=== PATIENT | female | born 1995 | race Caucasian/White ===

== ENCOUNTER → 2017-03-25 | Outpatient (CLI) | payer BC ==
[~2017-03-25] MED LIST: BIRTH CONTROL; CATHETER FLUSH 10 ML SYR IV PRN; HYOS0.379 PO; IOHEXOL 350 MG/ML 100 ML (OMNIPAQUE 350) VIAL IV ONE; NS 100 ML (IVPB) BAG IV ONE
--- NOTE | 2017-03-25 12:06 | Diagnostic Imaging Report ---
PROCEDURE: CT abdomen with contrast only. TECHNIQUE: Multiple contiguous axial images were obtained through the abdomen after the administration of intravenous contrast. INDICATION: Abdominal pain. 100 mL of Omnipaque 350 is administered intravenously. FINDINGS: The lung bases appear clear. The liver, the gallbladder, the spleen, the pancreas and the adrenal glands appear unremarkable. The kidneys demonstrate symmetric enhancement. No hydronephrosis. The abdominal aorta is normal in caliber. No paraaortic significantly enlarged lymph node is seen. The appendix is partially visualized in the lower abdomen with no abnormality seen. No fluid collection or pneumoperitoneum. Scoliosis convex to the right side is seen in the lumbar spine with no focal osseous lesion seen. IMPRESSION: Right convexity scoliosis. No acute process. Dictated by: Dictated on workstation # [id number]
== END ==
LOC: RAD 11:14
PROVIDERS: ATTEND Nurse Practitioner Family
DX: M41.26 Other idiopathic scoliosis, lumbar region (principal)
CPT/HCPCS: 74160

== ENCOUNTER 2017-04-14 05:35 | Outpatient (CLI) | payer BC ==
[~2017-04-14] VITALS: Ht 165.1 cm; Wt 68.0 kg
[~2017-04-14 05:35] MED LIST changes: -CATHETER FLUSH 10 ML SYR IV PRN; -IOHEXOL 350 MG/ML 100 ML (OMNIPAQUE 350) VIAL IV ONE; -NS 100 ML (IVPB) BAG IV ONE
[2017-04-14] MEDS ORDERED: HYOS0.1281 PO (09:39)
[2017-04-14] MEDS ORDERED: NORG1TAB14 PO (09:39)
== END 2017-04-14 09:42 ==
LOC: PREOP 05:35
PROVIDERS: ATTEND Surgery
DX: Z01.818 Encounter for other preprocedural examination (principal); K21.9 Gastro-esophageal reflux disease without esophagitis

== ENCOUNTER 2017-04-19 09:27 | Day surgery (SDC) | payer BC ==
[~2017-04-19] VITALS: Ht 165.1 cm; Wt 68.0 kg
[~2017-04-19 09:27] MED LIST changes: +HYOS0.1281 PO; +NORG1TAB14 PO
--- OUTSIDE RECORDS SUMMARY | 2017-04-19 09:32 | XMS REPORT ---
Author Author GRETTA CABA Organization [facility] Address [address] [place] [address] Care Team Providers Care Community Placement Worker Name Role Phone GRETTA CABA Unavailable PROBLEMS Unknown Problems ALLERGIES No Known Allergies SOCIAL HISTORY Never Assessed PLAN OF CARE Activity Details Follow Up prn Reason: VITAL SIGNS Height 65 in 2016-05-22 Weight 123.8 lbs 2016-05-22 Temperature 98.8 degrees Fahrenheit 2016-05-22 Heart Rate 80 bpm 2016-05-22 Respiratory Rate 18 2016-05-22 BMI 20.60 kg/m2 2016-05-22 Blood pressure systolic 114 mmHg 2016-05-22 Blood pressure diastolic 70 mmHg 2016-05-22 MEDICATIONS Medication Instructions Dosage Frequency Start Date End Date Duration Status Sprintec 28 0.25-35 MG-MCG Orally Once a day 1 tablet 24h Active RESULTS Name Result Date Reference Range STREP A (IN HOUSE) 2016-05-22 STREP A negative Control + Lot # [id number] Exp date [id number] PROCEDURES Procedure Date Ordered Result Body Site STREP A ASSAY W/OPTIC May 22, 2016 IMMUNIZATIONS No Known Immunizations
[2017-04-19 09:45] VITALS: BP 118/82
[2017-04-19] MEDS ORDERED: NS IV 500 ML 500 ML IV PRN (10:06)
[2017-04-19] MEDS ORDERED: HURRICAINE EXT TUBE (BENZOCAINE) XX PRN (10:15)
--- NOTE | 2017-04-19 10:55 | History & Physicial ---
History of Present Illness History of Present Illness Reason for visit/HPI to undergo an upper endoscopy regarding epigastric and left upper quadrant pain. Date of Admission 04/19/17 Date Seen by Provider: Apr 19, 2017 Time Seen by Provider: 10:53 I consulted on this patient on 04/19/17 10:53 Attending Physician Azael Wetzel MD Admitting Physician Meghan Amador DO Consult Allergies and Home Medications Allergies Coded Allergies: No Known Drug Allergies (Unverified , 04/14/17) Home Medications Hyoscyamine Sulfate 0.125 Mg Tablet, 0.125 MG PO PRN, (Reported) Norgestimate-Ethinyl Estradiol 1 Each Tablet, 1 EACH PO DAILY, (Reported) Past Tizqxhe-Vcsiaa-Yqnagt Hx Patient Social History Marrital Status: single Employed/Student: employed Alcohol Use: Occasionally Uses Recreational Drug Use: No Smoking Status: Former Smoker Former Smoker, Quit: Nov 16, 2016 Type Used: Cigarettes Recent Foreign Travel: No Contact w/other who traveled: No Recent Hopitalizations: No Recent Infectious Disease Expo: No Immunizations Up To Date Date of Influenza Vaccine: Apr 27, 2016 Seasonal Allergies Seasonal Allergies: No Surgeries No Respiratory No Cardiovascular No Neurological No Reproductive System Hx Reproductive Disorders: No Sexually Transmitted Disease: No HIV/AIDS: No Female Reproductive Disorders: Denies Gastrointestinal No Musculoskeletal Yes Scoliosis, Chronic Back Pain Endocrine History of Endocrine Disorders: No HEENT History of HEENT Disorders: No Loss of Vision: Bilateral Hearing Impairment: Denies Cancer No Blood Transfusions Adverse Reaction to a Blood Tr: No (N/A) Constitutional: no symptoms reported EENTM: no symptoms reported Respiratory: no symptoms reported Cardiovascular: no symptoms reported Gastrointestinal: see HPI Genitourinary: no symptoms reported Musculoskeletal: no symptoms reported Skin: no symptoms reported Psychiatric/Neurological: No Symptoms Reported Physical Exam Vital Signs Vital Sign - Last 12Hours 04/19/17 09:45 Temp 99.0 Pulse 68 Resp 20 B/P (MAP) 118/82 (94) Pulse Ox 100 O2 Delivery Room Air Capillary Refill : General Appearance: No Apparent Distress HEENT: Normal ENT Inspection Neck: Normal Inspection Respiratory: Lungs Clear Cardiovascular: Regular Rate, Rhythm Gastrointestinal: Non Tender, Soft Neurologic/Psychiatric: Alert, Oriented x3 Skin: Warm/Dry Assessment/Plan Assessment and Plan lady with epigastric and left upper quadrant abdominal pain. Esophagitis, peptic ulcers and H. pylori infection discussed. Upper endoscopy reasonable first. If negative,, an ultrasound evaluation of the gallbladder would be arranged as an outpatient Problems: AZAEL WETZEL MD Apr 19, 2017 10:55 am
--- NOTE | 2017-04-19 10:55 | Conscious Sedation/ASA ---
Conscious Sedation Pre-Proced Time Reviewed: 10:55 ASA Class: 2 Airway Mallampati Classification: (mentasta appropriate class) I. II. III, IV Lungs Heart ASA score ASA 1: a normal healthy patient ASA 2: a patient with a mild systemic disease (mid diabetes, controlled hypertension, obesity ASA 3: a patient with a severe systemic disease that limits activity (angina , COPD, prior Myocardial infarction) ASA 4: a patient with an incapacitating disease that is a constant threat to life (CHF, renal failure) ASA 5: a moribund patient not expected to survive 24 hrs. (ruptured aneurysm) ASA 6: a declared brain patient whose organs are being harvested. For emergent operations, add the letter E after the classification Grade 1 Sedation Plan: Discussed options with patient/fam Note The patient is an appropriate candidate to undergo the planned procedure, sedation, and anesthesia. The patient immediately re-assessed prior to indication. AZAEL KAPADIA MD Apr 19, 2017 10:55 am
[2017-04-19] MEDS ORDERED: MIDAZOLAM 2 MG/2 ML (VERSED) VIAL ONE ×4 (10:56→10:57)
[2017-04-19] MEDS ORDERED: fentaNYL INJECTION 100 MCG/2 ML AMP ONE (10:57)
[2017-04-19] MEDS ORDERED: HURRICAINE EXT TUBE (BENZOCAINE) ONE (10:57)
[2017-04-19] MEDS: fentaNYL INJECTION 100 MCG/2 ML AMP IVP PRN ×2 (11:03→11:10)
[2017-04-19] MEDS: MIDAZOLAM 2 MG/2 ML (VERSED) VIAL IVP PRN ×4 (11:04→11:16)
--- NOTE | 2017-04-19 11:29 | Endo Procedure Record ---
Endo Procedure Report Date of Procedure Apr 19, 2017 Surgeon (s) AZAEL KAPADIA MD Post Procedure/Op Diagnosis 1. Grade 2 esophagitis 2. Small distal gastric erosion 3. Very few duodenal erosions Procedure Performed EGD with antral biopsy for H. pylori Description of Procedure Anesthesia Type: Conscious Sedation Specimen(s) collected/removed antral mucosa for H. pylori Description of the Procedure Indication for procedure: This lady came in for an upper endoscopy to evaluate ongoing epigastric and left upper quadrant abdominal pain. Informed consent was obtained after reviewing the procedure in detail. Description of the procedure: She was placed in left lateral rectus position and her vital signs were monitored. Conscious sedation was achieved using Versed and fentanyl. The flexible gastroscope was then introduced down the esophagus, past the stomach, into the proximal duodenum. Findings Esophagus: Grade 2 esophagitis with a short hiatal hernia. Stomach: A very small and shallow erosion at the distal stomach. Biopsy for H. pylori was obtained. Duodenum: Very few, shallow erosions were found along the first part. There was no sukhdeep ulceration. She tolerated the procedure well and was taken back to the nursing area in a stable condition. Impression: Epigastric and left upper quadrant pain. Esophagitis and gastric/ duodenal erosions. H. pylori pending. Copies To: LAMAR GARRIDO XAVIER M MD Apr 19, 2017 11:29 am
--- NOTE | 2017-04-19 11:31 | Discharge Inst-Simple/Standard ---
Discharge Inst-Standard Discharge Medications New, Converted or Re-Newed RX: Other Patient Instructions/Follow Up Plan of Care/Instructions/FU: Please call for Protonix 40 mg daily for 30 days with 5 refills to her pharmacy. Schedule a gallbladder ultrasound as an outpatient. Activity as Tolerated: Yes Discharge Diet: No Restrictions AZAEL KAPADIA MD Apr 19, 2017 11:31 am
[2017-04-19 11:45] VITALS: BP 114/69
[2017-04-19 12:15] VITALS: BP 103/68
[2017-04-19 12:26] VITALS: BP 103/68
== END 2017-04-19 13:10 | disposition home or self-care (01) ==
LOC: ENDO 09:27
PROVIDERS: ATTEND Surgery
DX: K21.0 Gastro-esophageal reflux disease with esophagitis (principal); K25.9 Gastric ulcer, unspecified as acute or chronic, without hemorrhage or perforation; K26.9 Duodenal ulcer, unspecified as acute or chronic, without hemorrhage or perforation; Z87.891 Personal history of nicotine dependence
CPT/HCPCS: 84703

== ENCOUNTER → 2017-04-21 | Outpatient (CLI) | payer BC ==
--- NOTE | 2017-04-21 10:27 | Diagnostic Imaging Report ---
PROCEDURE: US Gallbladder. TECHNIQUE: Multiple real-time grayscale images were obtained over the right upper quadrant in various projections. INDICATION: Right upper quadrant pain. There are no previous ultrasound examinations available for comparison. The CT abdomen exam of 03/15/2017 failed to show any sign of an acute abnormality of the right upper quadrant. On this study, there is no evidence for cholelithiasis or acute cholecystitis. The common bile duct was obscured by bowel gas. The liver does not appear to be enlarged and there is no focal mass involving the liver. The biliary is not abnormally dilated. The right kidney and pancreas are within normal limits. There is no mass or free fluid collection noted. IMPRESSION: 1. There is no acute abnormality of the right upper quadrant, although the common bile duct was not well visualized. 2. If clinical concern regarding an acute abnormality of the gallbladder persists, then nuclear medicine hepatobiliary scan would be recommended for further study. Dictated by: Dictated on workstation # [id number]
== END ==
LOC: RAD 06:35
PROVIDERS: ATTEND Surgery
DX: R10.11 Right upper quadrant pain (principal)
CPT/HCPCS: 76705

== ENCOUNTER → 2017-04-23 | Outpatient (CLI) | payer BC ==
[~2017-04-23] MED LIST changes: +CATHETER FLUSH 10 ML SYR IV PRN
--- NOTE | 2017-04-23 14:32 | Diagnostic Imaging Report ---
INDICATION: Right upper quadrant pain. TECHNIQUE: Patient received 5 mCi technetium-99m Choletec and sequential imaging of the abdomen performed. At the 60-minute interval, the gallbladder stimulation was via Ensure by mouth. FINDINGS: There is prompt homogeneous distribution of radiopharmacy throughout the liver parenchyma. Within 15 minutes time, activity was seen to be accumulating within the gallbladder as well as the extrahepatic bile ducts. By 20 minutes time, activity had spilled into proximal bowel. With gallbladder stimulation via Ensure, there is only mild gallbladder contractility. The ejection fraction was 26%. IMPRESSION: Relatively low gallbladder ejection fraction of 26%, 30% typically the lower limits of normal. The study was otherwise unremarkable. Dictated by: Dictated on workstation # [id number]
== END ==
LOC: CARD 10:20
PROVIDERS: ATTEND Surgery
DX: R10.11 Right upper quadrant pain (principal)
CPT/HCPCS: 78227

== ENCOUNTER 2017-05-03 15:00 | Outpatient (CLI) | payer BC ==
[~2017-05-03] VITALS: Ht 165.1 cm; Wt 68.0 kg
[~2017-05-03 15:00] MED LIST changes: -CATHETER FLUSH 10 ML SYR IV PRN
== END 2017-05-03 15:26 ==
LOC: PREOP 15:00
PROVIDERS: ATTEND Surgery
DX: Z01.818 Encounter for other preprocedural examination (principal); K82.8 Other specified diseases of gallbladder

== ENCOUNTER 2017-05-05 05:50 | Day surgery (SDC) | payer BC ==
[~2017-05-05] VITALS: Ht 165.1 cm; Wt 68.0 kg
[2017-05-05 06:20] VITALS: BP 116/81
[2017-05-05] MEDS: LACTATED RINGERS 1,000 ML IV PRN ×2 (06:20→08:20)
[2017-05-05 06:31] LABS: BASOPHILS # (AUTO) 0.1 10^3/uL (0.0-0.1); BASOPHILS % (AUTO) 1 % (0-10); EOSINOPHILS # (AUTO) 0.1 10^3/uL (0.0-0.3); EOSINOPHILS % (AUTO) 2 % (0-10); HEMATOCRIT 40 % (35-52); HEMOGLOBIN 14.2 G/DL (11.5-16.0); LYMPHOCYTES # (AUTO) 2.3 X 10^3 (1.0-4.0); LYMPHOCYTES % (AUTO) 33 % (12-44); MEAN CORPUSCULAR HEMOGLOBIN 30 PG (25-34); MEAN CORPUSCULAR HGB CONC 35 G/DL (32-36); MEAN CORPUSCULAR VOLUME 86 FL (80-99); MEAN PLATELET VOLUME 10.5 FL (7.4-10.4); MONOCYTES # (AUTO) 0.5 X 10^3 (0.0-1.0); MONOCYTES % (AUTO) 8 % (0-12); NEUTROPHILS # (AUTO) 3.9 X 10^3 (1.8-7.8); NEUTROPHILS % (AUTO) 56 % (42-75); PLATELET COUNT 271 10^3/uL (130-400); RED BLOOD COUNT 4.71 10^6/uL (4.35-5.85); WHITE BLOOD COUNT 6.9 10^3/uL (4.3-11.0)
[2017-05-05] MEDS ORDERED: ceFAZolin 1,000 MG (ANCEF) VIAL ONE (06:52)
[2017-05-05] MEDS ORDERED: D5W 50 ML IVPB SOLUTION 50 ML IV ONE (06:52)
[2017-05-05] MEDS ORDERED: LIDOCAINE/EPI 1%-1:200,000 (XYLOCAINE) 10 ML VIAL ONE (06:59)
[2017-05-05] MEDS ORDERED: CATHETER FLUSH 10 ML SYR IV PRN (07:00)
[2017-05-05] MEDS ORDERED: D5W IV ONE ×2 (07:00)
[2017-05-05] MEDS ORDERED: CEFAZOLIN IV ONE ×2 (07:00)
[2017-05-05] MEDS ORDERED: metroNIDAZOLE 500 MG/100 ML IVPB (PRE-MIX) IV ONE (07:00)
[2017-05-05] MEDS ORDERED: proPOfol 200 MG/20 ML (DIPRIVAN) VIAL IV ONE (07:02)
[2017-05-05] MEDS ORDERED: LACTATED RINGERS 0 ML IV ONE (07:02)
[2017-05-05] MEDS ORDERED: ROCURONIUM 50 MG/5 ML (ZEMURON) VIAL IV ONE (07:02)
[2017-05-05] MEDS ORDERED: LIDOCAINE PF 2% 5 ML (XYLOCAINE) VIAL ONE (07:02)
[2017-05-05] MEDS ORDERED: LIDOCAINE JELLY 2% (XYLOCAINE) 5 ML TUBE ONE (07:02)
[2017-05-05] MEDS ORDERED: ONDANSETRON 4 MG/2 ML (SDV) Z0FRAN ONE (07:02)
[2017-05-05] MEDS ORDERED: MIDAZOLAM 2 MG/2 ML (VERSED) VIAL ONE (07:03)
[2017-05-05] MEDS ORDERED: fentaNYL INJECTION 100 MCG/2 ML AMP ONE (07:03)
[2017-05-05] MEDS ORDERED: ceFAZolin INJECTION 1,000 MG in D5W 50 ML IVPB SOLUTION 50 ML IV ONE (07:15)
[2017-05-05] MEDS ORDERED: metroNIDAZOLE 500MG/100ML IVPB 100 ML IV ONE (07:15)
--- NOTE | 2017-05-05 07:52 | Progress Note-Pre Operative ---
Pre-Operative Progress Note H&P Reviewed The H&P was reviewed, patient examined and no changes noted. Date Seen by Provider: Apr 29, 2017 Time Seen by Provider: 11:00 Date H&P Reviewed: May 05, 2017 Time H&P Reviewed: 07:52 Pre-Operative Diagnosis: Chronic cholecystitis AZAEL KAPADIA MD May 05, 2017 7:52 am
[2017-05-05] MEDS ORDERED: SEVOFLURANE (ULTANE) 15 ML INHAL SOLN ONE (08:50)
[2017-05-05] MEDS ORDERED: GLYCOPYRROLATE 0.2 MG/ML (ROBINUL) 2 ML VIAL ONE (08:53)
[2017-05-05] MEDS ORDERED: NEOSTIGMINE (BLOXIVERZ ) 1 MG/1ML 10 ML VIAL ONE (08:53)
--- NOTE | 2017-05-05 09:00 | Operative Report ---
Operative Report Date of Procedure/Surgery May 05, 2017 Surgeon (s) AZAEL KAPADIA MD Venetian Blind Cleaner And Repairer (s): N/A Post-Operative Diagnosis Same Procedure Performed Robotic-assisted cholecystectomy Description of Procedure Anesthesia Type: General Estimated blood loss (mL): Minimal Specimen(s) collected/removed Gallbladder Description of the Procedure Indication for the procedure: This lady presented with symptoms due to dyskinesia of the gallbladder and features of chronic, acalculous cholecystitis. She was therefore offered cholecystectomy using minimally invasive technique with robotic assistance. Informed consent was obtained after reviewing the operative details and complications of wound infection, bile leak and persistence of her symptoms Description of the procedure: She was placed supine on the operative table and general anesthesia induced using an endotracheal tube. A gram of Ancef and 500 mg of Flagyl were administered intravenously as prophylaxis against wound infection. Sequential compression devices were placed around her legs, to minimize the risk of venous thrombosis. Abdomen was prepared and draped in the usual sterile manner. Pneumoperitoneum was established using a Veress needle introduced over the subumbilical region. Intra-abdominal pressure was maintained at 15 mmHg, using carbon dioxide insufflation. A 12 mm trocar was placed and anatomy visualized using the high definition, 3-dimensional laparoscope, associated with da Kizzy system. Under direct view, I placed an 8 mm trocar over each side of the abdomen, followed by a 5 mm trocar over the left subcostal region.. The patient was then turned into reverse Trendelenburg position, with the right side tilted up. The robotic system was then off in place. The fundus of the gallbladder was retracted cephalad. Transverse colon and the associated greater omentum where adherent to the body of the gallbladder, being taken down using hook cautery. The infundibulum of the gallbladder was then grasped with Cadiere forceps and the tinea overlying Calot's triangle incised using the hook cautery, delineating the cystic duct and artery. Both were divided between locking clips. Cholecystectomy was then completed using the vocal cord. The gallbladder was then placed in an Endo Catch bag and removed via the subumbilical trocar site. The fascia over this incision was closed using #1 Vicryl using the Krishan Hayward device, under direct laparoscopic view. Skin incisions were closed using 4-0 Vicryl, in a subcuticular fashion. 1 percent lidocaine with epinephrine, mixed with 0.5 percent Marcaine, was used along the incisions, both preemptively and at the conclusion of the operation. She tolerated the procedure well, was extubated in the operating room and taken to the recovery room in a stable condition. Findings of the Procedure See op report Allergies and Home Medications Allergies Coded Allergies: No Known Drug Allergies (Unverified , 05/03/17) Home Medications Norgestimate-Ethinyl Estradiol 1 Each Tablet, 1 EACH PO DAILY, (Reported) AZAEL KAPADIA MD May 05, 2017 9:00 am
[2017-05-05] MEDS ORDERED: ACHD5005 PO (09:01)
--- NOTE | 2017-05-05 09:01 | Discharge Inst-Simple/Standard ---
Discharge Inst-Standard Discharge Medications New, Converted or Re-Newed RX: RX on Chart Patient Instructions/Follow Up Plan of Care/Instructions/FU: Band-Aids off in 48 hours. Incentive spirometry. Follow-up in 3 weeks. Activity as Tolerated: Yes Discharge Diet: No Restrictions AZAEL KAPADIA MD May 05, 2017 9:01 am
[2017-05-05] MEDS ORDERED: morphine INJ 10 MG/ML 1ML (SYR OR VIAL) ONE (09:08)
[2017-05-05] MEDS: morphine INJ 10 MG/ML 1ML (SYR OR VIAL) IVP PRN ×2 (09:24→09:29)
[2017-05-05] MEDS ORDERED: ONDANSETRON 4 MG/2 ML (SDV) Z0FRAN IVP PRN (09:30)
[2017-05-05] MEDS: MEPERIDINE (DEMEROL) INJ 50 MG/ML IVP PRN ×2 (09:35→09:43)
[2017-05-05] MEDS ORDERED: KETOROLAC 30 MG/ML VIAL ONE (09:40)
[2017-05-05] MEDS ORDERED: KETOROLAC 30 MG/ML VIAL IVP ONE (10:00)
[2017-05-05 10:05] VITALS: BP 105/54
[2017-05-05] MEDS ORDERED: HYDROcodone/APAP 5 MG/325 MG (LORTAB) TAB ONE (10:31)
[2017-05-05 10:35] VITALS: BP 99/49
[2017-05-05] MEDS ORDERED: HYDROcodone/APAP 5 MG/325 MG (LORTAB) TAB PO PRN (10:45)
[2017-05-05 11:05] VITALS: BP 97/45
[2017-05-05 11:15] VITALS: BP 97/45
== END 2017-05-05 11:35 | disposition home or self-care (01) ==
LOC: SDC 05:50
PROVIDERS: ATTEND Surgery
DX: K81.1 Chronic cholecystitis (principal); K82.8 Other specified diseases of gallbladder
CPT/HCPCS: 36415; 84703; 85025; 87081

== ENCOUNTER → 2021-02-25 | Outpatient (CLI) | payer BC, OTHER ==
[~2021-02-25] MED LIST changes: +ACHD5005 PO
[2021-02-25 13:18] LABS: BASOPHILS # (AUTO) 0.1 10^3/uL (0.0-0.1); BASOPHILS % (AUTO) 1 % (0-10); EOSINOPHILS # (AUTO) 0.6 10^3/uL (0.0-0.3); EOSINOPHILS % (AUTO) 4 % (0-10); HEMATOCRIT 42 % (35-52); HEMOGLOBIN 13.6 g/dL (11.5-16.0); LYMPHOCYTES # (AUTO) 4.8 10^3/uL (1.0-4.0); LYMPHOCYTES % (AUTO) 32 % (12-44); MEAN CORPUSCULAR HEMOGLOBIN 28 pg (25-34); MEAN CORPUSCULAR HGB CONC 33 g/dL (32-36); MEAN CORPUSCULAR VOLUME 85 fL (80-99); MONOCYTES # (AUTO) 0.8 10^3/uL (0.0-1.0); MONOCYTES % (AUTO) 5 % (0-12); NEUTROPHILS # (AUTO) 8.5 10^3/uL (1.8-7.8); NEUTROPHILS % (AUTO) 57 % (42-75); PLATELET COUNT 447 10^3/uL (130-400); WHITE BLOOD COUNT 14.9 10^3/uL (4.3-11.0)
--- NOTE | 2021-02-25 13:22 | Diagnostic Imaging Report ---
Indication: Cough and shortness of breath PA and lateral chest obtained at 0110 p.m. Heart and mediastinal silhouette are normal in appearance. The lungs are clear. There is no pneumothorax or pleural fluid. IMPRESSION: Negative chest. Dictated by: Dictated on workstation # [id number]
[2021-02-25 13:59] LABS: ALBUMIN 4.2 GM/DL (3.2-4.5); BILIRUBIN,TOTAL 0.2 MG/DL (0.1-1.0); CALCIUM 9.6 MG/DL (8.5-10.1); CREATININE SERUM 0.79 MG/DL (0.60-1.30); POTASSIUM 3.3 MMOL/L (3.6-5.0)
== END ==
LOC: RAD 12:39
PROVIDERS: ATTEND Nurse Practitioner Family
DX: R05.3 Chronic cough (principal); R06.02 Shortness of breath
CPT/HCPCS: 36415; 71046; 80053; 84443; 85025; 85379

== ENCOUNTER → 2021-05-28 | Outpatient (CLI) | payer BC ==
--- NOTE | 2021-05-28 14:31 | Diagnostic Imaging Report ---
INDICATION: Injury to left shoulder. TECHNIQUE: AP, oblique, and transscapular views of the left shoulder were obtained. FINDINGS: No fracture or acute bony abnormality is seen. The glenohumeral joint and AC joint appear unremarkable. IMPRESSION: Negative left shoulder. Dictated by: Dictated on workstation # [id number]
== END ==
LOC: LAB 14:08
PROVIDERS: ATTEND Family Medicine
DX: S49.92XA Unspecified injury of left shoulder and upper arm, initial encounter (principal); W19.XXXA Unspecified fall, initial encounter
CPT/HCPCS: 73030

== ENCOUNTER → 2021-06-03 | Outpatient (CLI) | payer BC ==
--- NOTE | 2021-06-03 16:43 | Diagnostic Imaging Report ---
PROCEDURE: MRI left upper extremity without contrast. TECHNIQUE: Multiplanar, multisequence non contrast-enhanced MRI of the left upper extremity was accomplished. INDICATION: Fall with injury to the left shoulder a couple of weeks ago. COMPARISON: Radiographs from 05/28/2021. FINDINGS: No acute fracture is seen in the left shoulder. Alignment appears normal. There is no joint effusion. There is motion artifact on some sequences. The supraspinatus tendon is intact. The infraspinatus and teres minor tendons are intact. The subscapularis tendon is intact. The long head of the biceps tendon is normal in course and signal. The glenoid labrum is suboptimally evaluated in the absence of intra-articular contrast. There is no paralabral cyst. The acromioclavicular joint appears normal. The acromion has a slightly curved undersurface without hooking. The coracoclavicular and coracoacromial ligaments are intact. There is no muscular atrophy. No soft tissue masses or fluid collections are seen. There is no lymphadenopathy. IMPRESSION: No acute abnormality is seen in the left shoulder. Dictated by: Dictated on workstation # [id number]
== END ==
LOC: RAD 12:30
PROVIDERS: ATTEND Nurse Practitioner Family
DX: M25.512 Pain in left shoulder (principal); W19.XXXA Unspecified fall, initial encounter
CPT/HCPCS: 73221

== ENCOUNTER → 2021-06-24 | Outpatient (CLI) | payer BC ==
--- NOTE | 2021-06-24 19:25 | Diagnostic Imaging Report ---
INDICATION: Fall. Pain. Injury. COMPARISON: None. FINDINGS: 3 views of the left hand were obtained and show no fractures, dislocations, or other acute bony abnormalities. Joint spaces are well maintained throughout. The soft tissues appear unremarkable. No radiopaque foreign bodies are identified. IMPRESSION: Unremarkable radiographic exam of the left hand. Dictated by: Dictated on workstation # [id number]
--- NOTE | 2021-06-24 20:12 | Diagnostic Imaging Report ---
CLINICAL INDICATION: Patient status post fall with pain. EXAM: X-ray of the left forearm, 2 views. COMPARISONS: None. FINDINGS: There is no acute fracture or dislocation. There is no elbow effusion. There is no significant bony abnormality. IMPRESSION: There is no acute fracture or dislocation. Dictated by: Dictated on workstation # [id number]
== END ==
LOC: RAD 16:34
PROVIDERS: ATTEND Nurse Practitioner Family
DX: S69.92XA Unspecified injury of left wrist, hand and finger(s), initial encounter (principal); X58.XXXA Exposure to other specified factors, initial encounter
CPT/HCPCS: 73090; 73130

== ENCOUNTER 2021-10-20 07:24 | Emergency (ER) | payer BC, OTHER ==
[~2021-10-20] VITALS: Ht 164 cm; Wt 86.0 kg
[2021-10-20] MEDS ORDERED: NS IV 1000 ML 1,000 ML IV ONE (08:15)
--- NOTE | 2021-10-20 08:18 | ED Abdominal Pain ---
General Chief Complaint: Abdominal/GI Problems Stated Complaint: ABD PAIN Nursing Triage Note: PT AMB TO RM 4 PT CO OF UPPER ABD PAIN 7/10 THIS AM. PT STATES HAS NAUSEA NO VOMITING. STATES HAS IBS AND DID HAVE 3 STOOLS YESTERDAY W BLOOD NOTED. Source of Information: Patient Exam Limitations: No Limitations History of Present Illness Date Seen by Provider: Oct 20, 2021 Time Seen by Provider: 08:00 Initial Comments Patient to the ER by private conveyance for chief complaint she was awoken about an hour ago from sleep with sharp pain 7 out of 10 that is since gone down to about a 4 out of 10. It is epigastric radiating through to her back. She has not had a drink in several days. She is not a routine drinker. She does have a aunt with a history of pancreatitis. She has had her gallbladder out in the past several years ago by Dr. Kapadia. She has had upper GI at that time but has never had a colonoscopy. She has a history of IBS and for the past week or so she has had having increasing amounts of diarrhea in the last couple days she is even had some bright red blood seen in her stool. She does not have a personal history of inflammatory bowel disease but she does have family with Crohn's. She has an allergy to hyoscyamine. She is having some nausea but no vomiting. No fevers chills or other abdominal surgeries. She is on Sprintec for control. Allergies and Home Medications Allergies Coded Allergies: No Known Drug Allergies (Unverified , 05/03/17) Patient Home Medication List Home Medication List Reviewed: Yes Hydrocodone Bit/Acetaminophen (Lortab 5 Mg Tablet) 1 Tab Tab, 1-2 TAB PO 4-6HR PRN for PAIN Prescribed by: AZAEL KAPADIA on 05/05/17 0901 Norgestimate-Ethinyl Estradiol (Sprintec 28 Day Tablet) 1 Each Tablet, 1 EACH PO DAILY, (Reported) Entered as Reported by: LOUIS TATE on 04/14/17 0939 Review of Systems Review of Systems Constitutional: No chills, No diaphoresis EENTM: No Blurred Vision, No Double Vision Respiratory: Denies Cough, Denies Shortness of Air Cardiovascular: Denies Chest Pain, Denies Lightheadedness Gastrointestinal: See HPI, Abdominal Pain, Blood Streaked Stools; Denies Constipated; Diarrhea, Nausea; Denies Poor Fluid Intake, Denies Vomiting Genitourinary: Denies Burning, Denies Discharge Musculoskeletal: No back pain, No joint pain Skin: No change in color, No pruritus Psychiatric/Neurological: Denies Headache, Denies Numbness All Other Systems Reviewed Negative Unless Noted: Yes Past Anzpruu-Lijpau-Xfkabh Hx Patient Social History Tobacco Use?: No Substance use?: No Alcohol Use?: No Pt feels they are or have been: No Immunizations Up To Date First/Initial COVID19 Vaccinat: 2020 Second COVID19 Vaccination Luiz: 2020 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[employer]: [employer] Seasonal Allergies Seasonal Allergies: No Past Medical History Surgery/Hospitalization HX: GALL BLADDER Surgeries: No Respiratory: No Cardiac: No Neurological: No Last Menstrual Period: Oct 11, 2021 Reproductive Disorders: No Female Reproductive Disorders: Denies Sexually Transmitted Disease: No HIV/AIDS: No Gastrointestinal: No Gall Bladder Disease Musculoskeletal: Yes Scoliosis, Chronic Back Pain Endocrine: No HEENT: No Loss of Vision: Bilateral Hearing Impairment: Denies Cancer: No Adverse Reaction/Blood Tranf: No (N/A) Physical Exam Vital Signs Vital Signs - First Documented 10/20/21 07:30 Temp 36.1 Pulse 93 Resp 18 B/P (MAP) 133/93 (106) Pulse Ox 96 Capillary Refill : Less Than 3 Seconds Height/Weight/BMI Height: 5'5.00" Weight: 150lbs. 0.0oz. 68.439949wk; 31.00 BMI Method:Stated General Appearance: WD/WN, no apparent distress HEENT: PERRL/EOMI, normal ENT inspection Neck: full range of motion, supple, normal inspection Respiratory: no respiratory distress, no accessory muscle use Cardiovascular: normal peripheral pulses, regular rate, rhythm Peripheral Pulses: 2+ Radial Pulses (R), 2+ Radial Pulses (L) Gastrointestinal: normal bowel sounds, soft, tenderness Extremities: normal range of motion, non-tender, normal capillary refill Neurologic/Psychiatric: alert, normal mood/affect, oriented x 3 Skin: normal color, warm/dry Progress/Results/Core Measures Results/Orders Lab Results Laboratory Tests Test 10/20/21 07:35 10/20/21 08:15 Range/Units White Blood Count 10.4 4.3-11.0 10^3/uL Red Blood Count 4.92 3.80-5.11 10^6/uL Hemoglobin 13.4 11.5-16.0 g/dL Hematocrit 41 35-52 % Mean Corpuscular Volume 84 80-99 fL Mean Corpuscular Hemoglobin 27 25-34 pg Mean Corpuscular Hemoglobin Concent 32 32-36 g/dL Red Cell Distribution Width 14.7 H 10.0-14.5 % Platelet Count 308 130-400 10^3/uL Mean Platelet Volume 10.7 9.0-12.2 fL Immature Granulocyte % (Auto) 0 % Neutrophils (%) (Auto) 60 42-75 % Lymphocytes (%) (Auto) 31 12-44 % Monocytes (%) (Auto) 6 0-12 % Eosinophils (%) (Auto) 1 0-10 % Basophils (%) (Auto) 1 0-10 % Neutrophils # (Auto) 6.3 1.8-7.8 10^3/uL Lymphocytes # (Auto) 3.2 1.0-4.0 10^3/uL Monocytes # (Auto) 0.7 0.0-1.0 10^3/uL Eosinophils # (Auto) 0.1 0.0-0.3 10^3/uL Basophils # (Auto) 0.1 0.0-0.1 10^3/uL Immature Granulocyte # (Auto) 0.0 0.0-0.1 10^3/uL Prothrombin Time 11.6 L 12.2-14.7 SEC INR Comment 0.8 0.8-1.4 Sodium Level 140 135-145 MMOL/L Potassium Level 3.8 3.6-5.0 MMOL/L Chloride Level 107 98-107 MMOL/L Carbon Dioxide Level 23 21-32 MMOL/L Anion Gap 10 5-14 MMOL/L Blood Urea Nitrogen 11 7-18 MG/DL Creatinine 0.76 0.60-1.30 MG/DL Estimat Glomerular Filtration Rate 110 BUN/Creatinine Ratio 14 Glucose Level 88 70-105 MG/DL Calcium Level 9.0 8.5-10.1 MG/DL Corrected Calcium 8.9 8.5-10.1 MG/DL Total Bilirubin 0.3 0.1-1.0 MG/DL Aspartate Amino Transf (AST/SGOT) 50 H 5-34 U/L Alanine Aminotransferase (ALT/SGPT) 43 0-55 U/L Alkaline Phosphatase 82 40-136 U/L C-Reactive Protein High Sensitivity 0.51 H 0.00-0.50 MG/DL Total Protein 7.2 6.4-8.2 GM/DL Albumin 4.1 3.2-4.5 GM/DL Lipase 92 H 8-78 U/L Urine Color YELLOW Urine Clarity CLEAR Urine pH 6.0 5-9 Urine Specific Minto 1.025 H 1.016-1.022 Urine Protein NEGATIVE NEGATIVE Urine Glucose (UA) NEGATIVE NEGATIVE Urine Ketones NEGATIVE NEGATIVE Urine Nitrite NEGATIVE NEGATIVE Urine Bilirubin NEGATIVE NEGATIVE Urine Urobilinogen 0.2 < = 1.0 MG/DL Urine Leukocyte Esterase NEGATIVE NEGATIVE Urine RBC (Auto) 3+ H NEGATIVE Urine RBC 5-10 H /HPF Urine WBC 0-2 /HPF Urine Squamous Epithelial Cells 5-10 /HPF Urine Crystals PRESENT H /LPF Urine Amorphous Sediment RARE DENA URATES H /LPF Urine Bacteria FEW H /HPF Urine Casts NONE /LPF Urine Mucus MODERATE H /LPF Urine Culture Indicated YES My Orders Orders - SILVERIO PAL Ua Culture If Indicated (10/20/21 07:27) Urine Bedside (10/20/21 07:27) Ed Iv/Invasive Line Start (10/20/21 08:14) Ns Iv 1000 Ml (Sodium Chloride 0.9%) (10/20/21 08:15) Cbc With Automated Diff (10/20/21 08:14) Comprehensive Metabolic Panel (10/20/21 08:14) Hs C Reactive Protein (10/20/21 08:14) Lipase (10/20/21 08:14) Protime With Inr (10/20/21 08:14) Ondansetron Injection (Zofran Injectio (10/20/21 08:30) Lidocaine 2% Viscous 15 Ml (Xylocaine Vi (10/20/21 08:30) Famotidine Tablet (Pepcid Tablet) (10/20/21 08:19) Antacid Suspension (Mylanta Suspension (10/20/21 08:30) Urine Culture (10/20/21 08:15) Ketorolac Injection (Toradol Injection) (10/20/21 10:00) Us Pancreas [id number] (10/20/21 09:46) Medications Given in ED Current Medications Medications Dose Ordered Sig/Sierra Route Start Time Stop Time Status Last Admin Dose Admin Al Hydrox/Mg Hydrox/Simethicone 30 ml ONCE ONCE PO 10/20/21 08:30 10/20/21 08:31 DC 10/20/21 08:39 30 ML Lidocaine HCl 15 ml ONCE ONCE PO 10/20/21 08:30 10/20/21 08:31 DC 10/20/21 08:39 15 ML Ondansetron HCl 4 mg ONCE ONCE IVP 10/20/21 08:30 10/20/21 08:31 DC 10/20/21 08:39 4 MG Sodium Chloride 1,000 ml @ 0 mls/hr Q0M ONCE IV 10/20/21 08:15 10/20/21 08:17 DC 10/20/21 08:39 999 MLS/HR Vital Signs/I&O 10/20/21 07:30 Temp 36.1 Pulse 93 Resp 18 B/P (MAP) 133/93 (106) Pulse Ox 96 Blood Pressure Mean: 106 Progress Progress Note #1: Time: 08:33 Progress Note Differential includes PUD, GERD/gastritis, pancreatitis, IBS/IBD. We will start with a GI cocktail, Zofran, a liter of fluids and some labs. If anything is alarming in the labs then we may consider an ultrasound of the gallbladder or CT to examine the bowels appropriately. We will get her set up with a general surgeon to consider colonoscopy outpatient. Progress Note #2: Time: 11:07 Progress Note Patient's pain is significant proved to 3 out of 10 no longer waxing and waning as much. She is not having any nausea. We did give her some precautions to return as well as conservative management of a mild pancreatitis. Diet changes. We will have her follow-up with Dr. Lopez in the clinic to discuss colonoscopy to help rule out IBD versus IBS since she is having some bloody stools Diagnostic Imaging Diagonstic Imaging: Ultrasound Plain Films/CT/US/NM/MRI: abdomen (panc) Comments [facility] [place], [place] NAME: CORAZON SERRATO [facility] REC#: [id number] PT STATUS: REG ER : 1995 PHYSICIAN: SILVERIO PAL MD ADMIT DATE: 10/20/21/ER Draft Date of Exam:10/20/21 PANCREAS [id number] INDICATION: Epigastric pain to back with marginal lipase 92. TECHNIQUE: Multiple Real-time grayscale sonographic images were obtained of the pancreas. CORRELATION STUDY: None. FINDINGS: Limited imaging focused over the pancreas has an unremarkable appearance. No definitive asymmetry or mass-like appearance. Main pancreatic duct does not appear to be abnormally enlarged. Limited imaging of the common bile duct does demonstrate mild dilatation up to 8 mm. No significant peripancreatic fluid collection. IMPRESSION: 1. Unremarkable appearance of the pancreas. 2. Common bile duct is mildly dilated. Dictated on workstation # [id number] Dict: 10/20/21 1045 Trans: 10/20/21 1049 [id number] Interpreted by: AXEL GUNN DO Electronically signed by: Reviewed: Reviewed by Me Departure Impression Primary Impression: Pancreatitis Qualified Codes: K85.90 - Acute pancreatitis without necrosis or infection, unspecified Additional Impressions: IBS (irritable bowel syndrome) Qualified Codes: K58.0 - Irritable bowel syndrome with diarrhea Suspect IBD Disposition: HOME, SELF-CARE Condition: Stable Departure-Patient Inst. Decision time for Depature: 11:08 Referrals: HILDA EISENBERG MD (PCP/Family) Primary Care Physician JERROD LOPEZ DO Patient Instructions: Irritable Bowel Syndrome, IBS Diet, Pancreatitis (DC) Add. Discharge Instructions: Drink plenty of fluids. Stick to a liquid diet until your symptoms improve. You can advance your diet as tolerated. Avoid spicy greasy foods. Tylenol 1000 mg every 8 hours as needed for pain. Ibuprofen 800 mg every 8 hours needed for pain. Hydrocodone 1 tablet every 6 hours needed for severe breakthrough pain keeping her from being functional. Hydrocodone will cause constipation and drowsiness. Do not mix with alcohol, long drives, operating heavy machinery. Use Colace and MiraLAX as necessary to keep regular. Ondansetron 1 tablet every 6 hours as needed for nausea and/or vomiting. If you are not having good control of your nausea after half an hour then take a second tablet every 6 hours. Return to the ER promptly if you are having intractable symptoms or fever above 102.[address]. Call Dr[address] Lopez's office and make an appointment for later this week or the following to discuss doing colonoscopy to work-up the possibility of an inflammatory bowel disease since you are having some bloody stools and abdominal discomfort. All discharge instructions reviewed with patient and/or family. Voiced understanding. Scripts Ondansetron (Ondansetron Odt) 4 Mg Tab.rapdis 4-8 MG PO Q6H PRN for NAUSEA/VOMITING, #12 TAB 0 Refills Prov: SILVERIO PAL 10/20/21 Hydrocodone/Acetaminophen (Hydrocodone-Acetamin 5-325 mg) 5 Mg-325 Mg Tablet 1 TAB PO Q6H PRN for PAIN-MODERATE (5-7), #8 TAB 0 Refills Prov: SILVERIO PAL 10/20/21 Copy Copies To 1: JERROD LOPEZ DO SILVERIO PAL Oct 20, 2021 08:18
[2021-10-20] MEDS ORDERED: FAMOTIDINE 20 MG (PEPCID) TABLET PO STA (08:19)
[2021-10-20 08:25] LABS: BILIRUBIN,URINE NEGATIVE (NEGATIVE); CLARITY,URINE CLEAR; COLOR,URINE YELLOW; GLUCOSE, URINE (UA) NEGATIVE (NEGATIVE); KETONES,URINE NEGATIVE (NEGATIVE); LEUKOCYTE ESTERASE ,URINE NEGATIVE (NEGATIVE); NITRITE,URINE NEGATIVE (NEGATIVE); PROTEIN,URINE NEGATIVE (NEGATIVE)
[2021-10-20] MEDS ORDERED: ANTACID SUSP 30 ML UDC (MYLANTA) PO ONE (08:30)
[2021-10-20] MEDS ORDERED: LIDOCAINE 2% VISCOUS 15 ML UDC PO ONE (08:30)
[2021-10-20] MEDS ORDERED: ONDANSETRON 4 MG/2 ML (SDV) Z0FRAN IVP ONE (08:30)
[2021-10-20 08:40] LABS: AMORPHOUS SEDIMENT,UR RARE AMOR URATES /LPF; BACTERIA,URINE FEW /HPF; WBC,URINE 0-2 /HPF
[2021-10-20 08:55] LABS: ALBUMIN 4.1 GM/DL (3.2-4.5); POTASSIUM 3.8 MMOL/L (3.6-5.0)
[2021-10-20 08:57] LABS: TOTAL PROTEIN 7.2 GM/DL (6.4-8.2)
[2021-10-20 08:59] LABS: BILIRUBIN,TOTAL 0.3 MG/DL (0.1-1.0)
[2021-10-20 09:01] LABS: CREATININE SERUM 0.76 MG/DL (0.60-1.30)
[2021-10-20 09:06] LABS: BASOPHILS # (AUTO) 0.1 10^3/uL (0.0-0.1); BASOPHILS % (AUTO) 1 % (0-10); EOSINOPHILS # (AUTO) 0.1 10^3/uL (0.0-0.3); EOSINOPHILS % (AUTO) 1 % (0-10); HEMATOCRIT 41 % (35-52); HEMOGLOBIN 13.4 g/dL (11.5-16.0); LYMPHOCYTES # (AUTO) 3.2 10^3/uL (1.0-4.0); LYMPHOCYTES % (AUTO) 31 % (12-44); MEAN CORPUSCULAR HEMOGLOBIN 27 pg (25-34); MEAN CORPUSCULAR HGB CONC 32 g/dL (32-36); MEAN CORPUSCULAR VOLUME 84 fL (80-99); MEAN PLATELET VOLUME 10.7 fL (9.0-12.2); MONOCYTES # (AUTO) 0.7 10^3/uL (0.0-1.0); MONOCYTES % (AUTO) 6 % (0-12); NEUTROPHILS # (AUTO) 6.3 10^3/uL (1.8-7.8); NEUTROPHILS % (AUTO) 60 % (42-75); PLATELET COUNT 308 10^3/uL (130-400); WHITE BLOOD COUNT 10.4 10^3/uL (4.3-11.0)
[2021-10-20 09:10] LABS: INR 0.8 (0.8-1.4); PROTHROMBIN TIME PATIENT 11.6 SEC (12.2-14.7)
[2021-10-20] MEDS ORDERED: KETOROLAC 30 MG/ML VIAL IVP ONE (10:00)
--- NOTE | 2021-10-20 10:49 | Diagnostic Imaging Report ---
INDICATION: Epigastric pain to back with marginal lipase 92. TECHNIQUE: Multiple Real-time grayscale sonographic images were obtained of the pancreas. CORRELATION STUDY: None. FINDINGS: Limited imaging focused over the pancreas has an unremarkable appearance. No definitive asymmetry or mass-like appearance. Main pancreatic duct does not appear to be abnormally enlarged. Limited imaging of the common bile duct does demonstrate mild dilatation up to 8 mm. No significant peripancreatic fluid collection. IMPRESSION: 1. Unremarkable appearance of the pancreas. 2. Common bile duct is mildly dilated. Dictated by: Dictated on workstation # [id number]
[2021-10-20] MEDS ORDERED: ONDA4TAB11 PO (11:11)
[2021-10-20] MEDS ORDERED: ACHD5005 PO (11:11)
[2021-10-20 11:13] VITALS: BP 122/72
== END 2021-10-20 11:24 | disposition home or self-care (01) ==
LOC: EDUNIT# 07:24 → ER 07:27
DX: K85.90 Acute pancreatitis without necrosis or infection, unspecified (principal); K58.9 Irritable bowel syndrome, unspecified; Z90.49 Acquired absence of other specified parts of digestive tract
CPT/HCPCS: 36415; 76705; 80053; 81000; 83690; 84703; 85025; 85610; 86141; 87088

== ENCOUNTER 2021-11-07 08:00 | Outpatient (RCR) | payer OTHER ==
[~2021-11-07] VITALS: Ht 167.6 cm; Wt 88.0 kg
[~2021-11-07 08:00] MED LIST changes: +ESCI20TA39 PO; +HYDR-3584 PO; +LORA-877 PO; +ONDA4TAB11 PO
== END 2021-11-07 09:38 | disposition home or self-care (01) ==
LOC: PREOP 08:00
PROVIDERS: ATTEND Surgery
DX: Z01.812 Encounter for preprocedural laboratory examination (principal); K62.5 Hemorrhage of anus and rectum; R10.13 Epigastric pain; Z20.822 Contact with and (suspected) exposure to COVID-19
CPT/HCPCS: 87636

== ENCOUNTER 2021-11-11 07:03 | Day surgery (SDC) | payer OTHER ==
[~2021-11-11] VITALS: Ht 167.6 cm; Wt 88.0 kg
[2021-11-11] MEDS ORDERED: LACTATED RINGERS 1,000 ML IV STA (07:12)
[2021-11-11] MEDS ORDERED: HURRICAINE EXT TUBE (BENZOCAINE) XX PRN (07:15)
[2021-11-11 07:37] VITALS: BP 115/78
[2021-11-11] MEDS ORDERED: MIDAZOLAM 2 MG/2 ML (VERSED) VIAL ONE (07:48)
[2021-11-11] MEDS ORDERED: PROPOFOL INJECTION 50 ML IV ONE (07:48)
--- NOTE | 2021-11-11 08:23 | Progress Note-Pre Operative ---
Pre-Operative Progress Note Date of Available H&P: Nov 03, 2021 Date H&P Reviewed: Nov 11, 2021 Time H&P Reviewed: 08:21 History & Physical: H&P Reviewed, Patient Examed, No changes noted Pre-Operative Diagnosis: rectal bleed, epigastric pain JERROD LOPEZ DO Nov 11, 2021 08:23
[2021-11-11 09:01] VITALS: BP 126/86
--- NOTE | 2021-11-11 09:04 | Progress Note-Post Operative ---
Post-Operative Progess Note Surgeon (s)/Heel Former (s) Surgeon JERROD LOPEZ DO Heel Former: na Pre-Operative Diagnosis rectal bleed, epigastric pain Post-Operative Diagnosis reflux esophagitis, normal colon Procedure & Operative Findings Date of Procedure 11/11/21 Procedure Performed/Findings egd c biopsies, colonoscopy c random cold biopsies. Anesthesia Type per [facility] Estimated Blood Loss Estimated blood loss (mL): none Specimens/Packing Specimens Removed antrum, ge, random colon JERROD LOPEZ DO Nov 11, 2021 09:04
--- NOTE | 2021-11-11 09:04 | Anesthesia-General Post-Op ---
MAC Patient Condition Mental Status/LOC: Same as Preop Cardiovascular: Satisfactory Nausea/Vomiting: Absent Respiratory: Satisfactory Pain: Controlled Complications: Absent Post Op Complications Complications None Follow Up Care/Instructions Patient Instructions None needed. Anesthesiology Discharge Order Discharge Order Patient is doing well, no complaints, stable vital signs, no apparent adverse anesthesia problems. No complications reported per nursing. TOM NIELSEN DO Nov 11, 2021 09:04
[2021-11-11] MEDS ORDERED: PANT40TA2 PO (09:05)
--- NOTE | 2021-11-11 09:07 | Discharge Inst-Simple/Standard ---
Discharge Inst-Standard Discharge Medications New, Converted or Re-Newed RX: Transmitted to Pharmacy Patient Instructions/Follow Up Plan of Care/Instructions/FU: 2 weeks Gadiel Activity as Tolerated: Yes Discharge Diet: Regular Diet JERROD LOPEZ DO Nov 11, 2021 09:07
[2021-11-11 09:25] VITALS: BP 101/78
[2021-11-11 09:27] VITALS: BP 101/78
--- NOTE | 2021-11-11 12:49 | OPERATIVE REPORT ---
DATE OF SERVICE: 11/11/2021 PREOPERATIVE DIAGNOSES: Rectal bleeding, epigastric abdominal pain. POSTOPERATIVE DIAGNOSES: Reflux esophagitis, normal colon. PROCEDURE: EGD with biopsies, colonoscopy with random cold biopsies. SURGEON: Jerrod Ramesh DO ANESTHESIA: Per [facility]. ESTIMATED BLOOD LOSS: None. COMPLICATIONS: None. SPECIMENS: Antrum, GE junction, random colon. INDICATIONS: The patient is a 26-year-old female with rectal bleeding and epigastric abdominal pain. She understands risks and benefits of procedure and wishes to proceed. Consent was signed in the chart. DESCRIPTION OF PROCEDURE: The patient was taken to the endoscopy suite, placed in left lateral recumbent position. Timeout was performed. Scope was inserted in mouth, down the esophagus, stomach and into the duodenum without difficulty. There were no polyps, masses or ulcerations within the duodenum. Scope was slowly retracted back to stomach where it was further insufflated. No polyps, masses or ulcerations. Biopsy of the antrum was obtained. Scope was then slowly retracted back to the distal esophagus, reflux esophagitis present. Biopsy of the GE junction was obtained. Scope was slowly retracted back until completely removed noting no other pathology. Digital rectal exam was performed. No palpable polyps, masses or ulcerations. No fissures. Scope was inserted in the rectum and advanced all the way to cecum with minimal difficulty. Prep was adequate. Scope was slowly retracted back. No polyps, masses or ulcerations within the cecum, ascending, transverse, descending and sigmoid colon. Randomly, few cold biopsies were obtained. Scope was then continuously retracted back in the rectum where it was also retroflexed noting no other pathology. Scope was returned to its normal position, slowly withdrawn until completely removed. The patient tolerated the procedure well without any complications. She was taken to recovery room in stable condition. RECOMMENDATIONS: The patient will need repeat colonoscopy per screening guidelines, which would be at age 44. If she has any issues with her recurrent bleeding, she should be reevaluated at that time. The patient will be started on Protonix 40 mg daily for the reflux esophagitis. She will follow up in the office to discuss pathology results and see how her symptoms are doing. Job ID: [id number] DocumentID: [id number] Dictated Date: 11/11/2021 09:09:24 Shipping & Receiving Lead Date: 11/11/2021 12:48:19 Dictated By: JERROD RAMESH DO
== END 2021-11-11 09:29 | disposition home or self-care (01) ==
LOC: ENDO 07:03
PROVIDERS: ATTEND Surgery
DX: K21.00 Gastro-esophageal reflux disease with esophagitis, without bleeding (principal); K63.89 Other specified diseases of intestine; K62.5 Hemorrhage of anus and rectum; Z87.891 Personal history of nicotine dependence
CPT/HCPCS: 84703